=== PATIENT | male | born 1955 | race Two or more races ===

== ENCOUNTER 2018-03-08 20:33 | Emergency (ER) | payer OTHER, MEDICAID ==
[~2018-03-08] VITALS: Ht 167.6 cm; Wt 77.1 kg
[2018-03-08 22:18] VITALS: BP 141/75
[2018-03-08] MEDS ORDERED: HYDROcodone-ACET 10/325MG TAB PO ONE (22:45)
== END 2018-03-08 23:20 | disposition home or self-care (01) ==
LOC: ER 20:33
DX: S93.492A Sprain of other ligament of left ankle, initial encounter (principal); M19.90 Unspecified osteoarthritis, unspecified site; W19.XXXA Unspecified fall, initial encounter; Y93.89 Activity, other specified; Y99.8 Other external cause status; Y92.89 Other specified places as the place of occurrence of the external cause
CPT/HCPCS: 73610

== ENCOUNTER 2018-03-10 19:05 | Emergency (ER) | payer OTHER, MEDICAID ==
[~2018-03-10] VITALS: Ht 167.6 cm; Wt 77.1 kg
[2018-03-10 19:17] VITALS: BP 150/76
== END 2018-03-10 20:42 | disposition home or self-care (01) ==
LOC: ER 19:05
DX: S82.435A Nondisplaced oblique fracture of shaft of left fibula, initial encounter for closed fracture (principal); M19.90 Unspecified osteoarthritis, unspecified site; E11.9 Type 2 diabetes mellitus without complications; I10 Essential (primary) hypertension; W18.39XA Other fall on same level, initial encounter; Y93.E1 Activity, personal bathing and showering; Y99.8 Other external cause status; Y92.89 Other specified places as the place of occurrence of the external cause
CPT/HCPCS: 29515; 73610; 73630

== ENCOUNTER 2021-02-16 06:12 | Emergency (ER) | payer OTHER, MEDICAID ==
[~2021-02-16] VITALS: Ht 172.7 cm; Wt 74.8 kg
[2021-02-16 08:03] VITALS: BP 130/93
[2021-02-16] MEDS ORDERED: TETANUS-DIPTH-ACEL PERTUSSIS 0.5ML SYR Tdap IM ONE (08:30)
== END 2021-02-16 08:49 | disposition home or self-care (01) ==
LOC: ER 06:12
DX: S51.842A Puncture wound with foreign body of left forearm, initial encounter (principal); E11.9 Type 2 diabetes mellitus without complications; I10 Essential (primary) hypertension; W45.8XXA Other foreign body or object entering through skin, initial encounter; Y93.89 Activity, other specified; Y92.89 Other specified places as the place of occurrence of the external cause; Y99.8 Other external cause status
CPT/HCPCS: 10120; 73090; 90471; 90715